=== PATIENT | female | born 1965 | race Caucasian/White ===

== ENCOUNTER 2018-09-27 14:49 | Emergency (ER) | payer MEDICAID ==
[~2018-09-27] VITALS: Ht 157.5 cm; Wt 68.6 kg
[2018-09-27 15:01] VITALS: Ht 157.5 cm; Wt 68.6 kg
[2018-09-27] MEDS ORDERED: KETOROLAC 30 MG INJ IM STA (16:28)
[2018-09-27] MEDS ORDERED: PROMETHAZINE/CODEINE 5ML CUP PO ONE (17:00)
--- NOTE | 2018-09-27 18:01 | ERD ---
ER Documentation Chief Complaint Chief Complaint chest wall pain w/cough & sorethroat HPI 52-year-old female presents with complaint of sore throat, cough, chest pain when coughing the past 3 days. Denies wheezing, stridor, respiratory distress, SOB, dyspnea, lower extremity swelling or pain, pain on exertion, diaphoresis, nausea, radiating of pain, recent travel or immobilization, hemoptysis, dsypnea, history of clotting disorder, syncope, fever, or cough. She is allergic to sulfas. Denies any other medical history. ROS All systems reviewed and are negative except as per history of present illness. Allergies Allergies: Coded Allergies: Sulfa (Sulfonamide Antibiotics) (Unverified Allergy, Unknown, 09/27/18) PMhx/Soc Hx Alcohol Use: No Hx Substance Use: No Hx Tobacco Use: No Smoking Status: Never smoker FmHx Family History: No diabetes, No coronary disease, No other Physical Exam Vitals Vital Signs Date Temp Pulse Resp B/P (MAP) Pulse Ox O2 O2 Flow FiO2 Time Delivery Rate 09/27/18 98.2 102 18 166/96 98 15:01 (119) Physical Exam Const: No acute distress Head: Atraumatic Eyes: Normal Conjunctiva ENT: Normal External Ears, Nose and Mouth. Neck: Full range of motion. No meningismus. Resp: Clear to auscultation bilaterally Cardio: Regular rate and rhythm, no murmurs Abd: Soft, non tender, non distended. Normal bowel sounds Skin: No petechiae or rashes Back: No midline or flank tenderness Ext: No cyanosis, or edema Neur: Awake and alert Psych: Normal Mood and Affect Results 24 hrs Laboratory Tests Test 09/27/18 16:39 09/27/18 17:10 POC Beta HCG, Qualitative NEGATIVE Troponin I < 0.012 ng/ml Current Medications Medications Dose Sig/Henok Start Time Status Last (Trade) Ordered Route PRN Stop Time Admin Dose Reason Admin Ketorolac 30 mg ONCE STAT 09/27/18 DC 09/27/18 Tromethamine IM 16:28 09/27/18 16:47 (Toradol) 16:31 Promethazine 10 ml ONCE ONCE 09/27/18 DC 09/27/18 HCl/ PO 17:00 09/27/18 16:47 Codeine 17:01 (Phenergan/ Codeine) Procedures/MDM DIAGNOSTIC IMAGING REPORT Patient: JANELL THOMPSON : 1965 Age: 52 Sex: F MR #: [id number] DOS: 09/27/18 1628 Ordering MD: DALLAS GARZA Location: [facility] Room/Bed: PROCEDURE: XR Chest. CLINICAL INDICATION: Cough. TECHNIQUE: Single frontal chest x-ray. COMPARISON: None available. FINDINGS: The cardiomediastinal silhouette is unremarkable. No pneumothorax, pleural effusion or consolidation is seen. No acute osseous abnormality is noted. IMPRESSION: 1. No acute cardiopulmonary abnormality. RPTAT: HH .Kathi Sweeney MD, Date Time Electronically viewed and signed by .Kathi Sweeney MD, MD on 09/27/2018 17:44 .N/ CC: DALLAS GARZA [id number] EKG: Rate/Rhythm: Normal Sinus Rhythm QRS, ST, T-waves: No changes consistent w/ acute ischemia Impression: No evidence of ischemia or arrhythmia MDM: Chest x-ray was performed and was within normal limits. Troponin EKG within normal limits as well. I have low suspicion for bacterial sinusitis, pneumonia, tuberculosis, meningitis, pneumothorax, PE, aspirated foreign body, respiratory distress, acute heart failure or other life threatening etiology b ased on patient history and exam findings. I have low suspicition for acute coronary syndrome, pulmonary embolism, aortic dissection, AAA, pneumothorax, esophageal rupture, pericarditis, myocarditis, or pneumonia based on EKG, imaging, labs, patient history and exam. Patient discharged with strict ER precautions. Patient advised to follow up with PMD. All questions answered at [facility]. Most likely etiology is viral URI and no further tests are necessary. Patient given rx for medicine with codeine and ibuprofen. Patient advised to rest and stay well hydrated. Patient discharged with strict ER precautions. Patient advised to follow up with PMD. All questions answered at discharge. Departure Diagnosis: Primary Impression: URI (upper respiratory infection) URI type: unspecified viral URI Qualified Codes: J06.9 - Acute upper respiratory infection, unspecified Condition: DALLAS Collazo Sep 27, 2018 18:01
[2018-09-27] MEDS ORDERED: PROM5SYR2 PO (18:03)
[2018-09-27] MEDS ORDERED: IBUP-1542 PO (18:03)
[2018-09-27 18:08] VITALS: BP 139/87; PULSE 78; RESP 18
== END 2018-09-27 18:09 | disposition home or self-care (01) ==
LOC: FTE 14:49
DX: J06.9 Acute upper respiratory infection, unspecified (principal); R07.89 Other chest pain
CPT/HCPCS: 71045; 81025; 84484; 87880; 93005; 96372; J1885; Z7502; Z7610